=== PATIENT | male | born 1945 | race Caucasian/White ===

== ENCOUNTER 2020-08-15 12:22 | Emergency (ER) | payer OTHER ==
[~2020-08-15] VITALS: Ht 165.1 cm; Wt 68.2 kg
[2020-08-15] MEDS ORDERED: ACETAMINOPHEN 500 MG TABLET PO ONE (15:00)
[2020-08-15 15:15] LABS: BASOPHILS % (AUTO) 0.4 % (0.0-2.0); EOSINOPHILS % (AUTO) 0 % (1.0-6.0); HEMATOCRIT 39.1 % (41-53); HEMOGLOBIN 13.6 g/dL (13.5-17.5); LYMPHOCYTES # (AUTO) 0.4 K/uL (1.0-4.8); LYMPHOCYTES % (AUTO) 4.3 % (22.0-44.0); MEAN CORPUSCULAR HEMOGLOBIN 31.2 pg (26.0-34.0); MEAN CORPUSCULAR HGB CONC 34.8 G/dL (31.0-37.0); MEAN CORPUSCULAR VOLUME 90 fL (80-100); MONOCYTES % (AUTO) 12.1 % (2.0-9.0); NEUTROPHILS # (AUTO) 6.9 K/uL (1.8-7.7); NEUTROPHILS % (AUTO) 83.2 % (40.0-70.0); PLATELET COUNT (AUTO) 154 K/uL (150-450); RED BLOOD CELL COUNT(AUTO) 4.35 MIL/uL (4.50-5.90); RED CELL DISTRIBUTION WIDTH 13.4 % (11.5-14.5)
[2020-08-15 15:31] LABS: CALCIUM, TOTAL 8.7 mg/dL (8.8-10.5); CREATININE 1.87 mg/dL (0.60-1.30); POTASSIUM 3.9 mmol/L (3.5-5.1)
[2020-08-15 15:37] LABS: ALBUMIN 2.4 g/dL (3.4-5.0); BILIRUBIN,TOTAL 0.5 mg/dL (0.1-1.0)
[2020-08-15] MEDS ORDERED: CefTRIAXone 1 GM/DEXTROSE 50 ML IV ONE (16:15)
[2020-08-15] MEDS ORDERED: AZITHROMYCIN 500 MG/NS 250 ML IV ONE (16:15)
[2020-08-15 16:26] LABS: LACTIC ACID 1.5 mmol/L (0.4-2.0)
[2020-08-15 16:40] LABS: COVID AG,FIA SOURCE NASOPHARYNGEAL
[2020-08-15] MEDS ORDERED: SODIUM CHLORIDE 0.9% 250 ML IV ONE (17:15)
[2020-08-15 19:00] VITALS: BP 174/92
[2020-08-15 19:04] LABS: APPEARANCE,URINE CLOUDY (CLEAR); GLUCOSE, URINE (UA) 100 mg/dL (NEGATIVE); KETONES,URINE TRACE mg/dL (NEGATIVE); LEUKOCYTE ESTERASE ,URINE NEGATIVE (NEGATIVE); NITRATE,URINE NEGATIVE (NEGATIVE); OCCULT BLOOD,URINE LARGE (NEGATIVE); PROTEIN,URINE SEE CONFIRM (NEGATIVE)
[2020-08-15 19:16] LABS: BILIRUBIN,URINE PRELIM. POSITIVE (NEGATIVE)
[2020-08-15 19:26] LABS: SULFOSALICYLIC ACID,URINE 4+ (Negative)
[2020-08-15 19:28] LABS: BACTERIA,URINE Few /HPF (None Seen); RBC,URINE 0-2 /HPF (0-2); SQUAMOUS EPITHELIAL CELL,UR Few /LPF (None Seen); WBC,URINE 0-2 /HPF (0-5)
== END 2020-08-15 19:31 | disposition short-term general hospital (02) ==
LOC: EMS 12:24
DX: J18.9 Pneumonia, unspecified organism (principal); N28.9 Disorder of kidney and ureter, unspecified; E11.9 Type 2 diabetes mellitus without complications; I25.2 Old myocardial infarction; Z20.828 Contact with and (suspected) exposure to other viral communicable diseases
CPT/HCPCS: 36415; 70450; 71045; 71250; 80053; 81001; 82962; 83605; 83880; 84484; 85025; 87040; 87426; 93005; 96365; 96367; 99285; J0456; J0696; J7050

== ENCOUNTER 2021-08-07 09:06 | Inpatient (IN) | payer OTHER ==
[~2021-08-07] VITALS: Ht 167.6 cm; Wt 93.5 kg
[2021-08-07 09:21] LABS: EOSINOPHILS % (AUTO) 4.3 % (1.0-6.0); HEMATOCRIT 40.8 % (41-53); HEMOGLOBIN 13.8 g/dL (13.5-17.5); LYMPHOCYTES # (AUTO) 1.3 K/uL (1.0-4.8); LYMPHOCYTES % (AUTO) 19.7 % (22.0-44.0); MEAN CORPUSCULAR HEMOGLOBIN 30.6 pg (26.0-34.0); MEAN CORPUSCULAR HGB CONC 33.7 G/dL (31.0-37.0); MEAN CORPUSCULAR VOLUME 91 fL (80-100); MONOCYTES # (AUTO) 0.7 K/uL (0.1-1.0); MONOCYTES % (AUTO) 10.6 % (2.0-9.0); NEUTROPHILS # (AUTO) 4.3 K/uL (1.8-7.7); NEUTROPHILS % (AUTO) 63.4 % (40.0-70.0); PLATELET COUNT (AUTO) 182 K/uL (150-450); RED BLOOD CELL COUNT(AUTO) 4.49 MIL/uL (4.50-5.90); RED CELL DISTRIBUTION WIDTH 13.5 % (11.5-14.5)
[2021-08-07 09:31] LABS: CALCIUM, TOTAL 8.9 mg/dL (8.8-10.5); CREATININE 1.87 mg/dL (0.60-1.30); POTASSIUM 4.1 mmol/L (3.5-5.1)
[2021-08-07 09:37] LABS: PROTHROMBIN TIME 58.5 SEC (9.4-11.6)
[2021-08-07 09:39] LABS: ALBUMIN 2.7 g/dL (3.4-5.0); BILIRUBIN,TOTAL 0.3 mg/dL (0.1-1.0); TOTAL PROTEIN, SERUM 6.4 g/dL (6.4-8.2)
[2021-08-07] MEDS ORDERED: SODIUM CHLORIDE 0.9% 100 ML ONE (09:43)
[2021-08-07] MEDS ORDERED: IOHEXOL 350 MG/ML 100 ML VIAL ONE (09:43)
[2021-08-07] MEDS ORDERED: TRAZ-252 PO (09:45)
[2021-08-07] MEDS ORDERED: ATOR10TA84 PO (09:45)
[2021-08-07] MEDS ORDERED: EMPA25TA PO (09:45)
[2021-08-07] MEDS ORDERED: TERA5CAP77 PO (09:45)
[2021-08-07] MEDS ORDERED: FURO40 PO (09:45)
[2021-08-07] MEDS ORDERED: CARV25 PO (09:45)
[2021-08-07] MEDS ORDERED: LISI-894 PO (09:45)
[2021-08-07] MEDS ORDERED: WARF5TAB40 PO (09:45)
[2021-08-07] MEDS ORDERED: METF-960 PO (09:45)
[2021-08-07] MEDS ORDERED: FINA-27 PO (09:45)
[2021-08-07 09:55] LABS: INR 6.5 (0.9-1.1)
[2021-08-07] MEDS ORDERED: ASPIRIN 300 MG RECTAL SUPPOSITORY PR ONE (10:15)
[2021-08-07] MEDS ORDERED: PHYTONADIONE 10 MG/1 ML AMP SQ ONE (10:15)
[2021-08-07] MEDS ORDERED: NiCARDipine HCL 25 MG in SODIUM CHLORIDE 0.9% 240 ML IV PRN (10:15)
[2021-08-07 12:07] LABS: COVID AG,FIA SOURCE NASOPHARYNGEAL
[2021-08-07 12:39] LABS: GLUCOMETER DEV NAME(LOC) ERT.5; GLUCOSE,POINT OF CARE 156 MG/DL (70-110)
[2021-08-07] MEDS ORDERED: ONDANSETRON HCL 4 MG/2 ML VIAL IVP PRN ×2 (12:45→13:15)
[2021-08-07] MEDS ORDERED: BISACODYL 10 MG RECTAL RECTAL SUPPOSITORY PR PRN (12:45)
[2021-08-07] MEDS ORDERED: IPRATROPIUM BROMIDE 0.5 MG/2.5 ML NEB SOLUTION NEB PRN (12:45)
[2021-08-07] MEDS ORDERED: 0.9% SODIUM CHLORIDE 10 ML SYRINGE IVP PRN ×2 (12:45→13:15)
[2021-08-07] MEDS ORDERED: ALBUTEROL SULFATE 2.5 MG/0.5 ML NEB SOLUTION NEB PRN (12:45)
[2021-08-07] MEDS ORDERED: DEXTROSE 50%-WATER 25 GM/50 ML SYRINGE IVP PRN (13:00)
[2021-08-07] MEDS ORDERED: ACETAMINOPHEN 325 MG TABLET PO PRN (13:15)
[2021-08-07] MEDS: PANTOPRAZOLE SODIUM 40 MG/VIAL IVP SCH (13:56)
[2021-08-07] MEDS: NiCARDipine HCL 25 MG in SODIUM CHLORIDE 0.9% 240 ML IV PRN (18:07)
[2021-08-07] MEDS: ACETAMINOPHEN 325 MG TABLET PO PRN (21:10)
[2021-08-07] MEDS ORDERED: ACETAMINOPHEN 650 MG RECTAL SUPPOSITORY PR PRN (22:00)
[2021-08-08 00:51] LABS: GLUCOMETER DEV NAME(LOC) ERT.5; GLUCOSE,POINT OF CARE 129 MG/DL (70-110)
[2021-08-08] MEDS: NiCARDipine HCL 25 MG in SODIUM CHLORIDE 0.9% 240 ML IV PRN ×3 (01:44→12:23)
[2021-08-08 04:38] LABS: BASOPHILS % (AUTO) 1.6 % (0.0-2.0); EOSINOPHILS % (AUTO) 1.8 % (1.0-6.0); HEMATOCRIT 39.7 % (41-53); HEMOGLOBIN 13.5 g/dL (13.5-17.5); LYMPHOCYTES # (AUTO) 0.8 K/uL (1.0-4.8); LYMPHOCYTES % (AUTO) 9.7 % (22.0-44.0); MEAN CORPUSCULAR HEMOGLOBIN 30.7 pg (26.0-34.0); MEAN CORPUSCULAR VOLUME 90 fL (80-100); MONOCYTES # (AUTO) 0.6 K/uL (0.1-1.0); MONOCYTES % (AUTO) 7.7 % (2.0-9.0); NEUTROPHILS # (AUTO) 6.6 K/uL (1.8-7.7); NEUTROPHILS % (AUTO) 79.2 % (40.0-70.0); PLATELET COUNT (AUTO) 183 K/uL (150-450); RED CELL DISTRIBUTION WIDTH 13.3 % (11.5-14.5)
[2021-08-08 04:53] LABS: INR 3.7 (0.9-1.1); PROTHROMBIN TIME 35.5 SEC (9.4-11.6)
[2021-08-08 05:28] LABS: HEMOGLOBIN A1C 6.6 % (3.8-5.6)
[2021-08-08 05:32] LABS: ALBUMIN 2.5 g/dL (3.4-5.0); BILIRUBIN,TOTAL 0.5 mg/dL (0.1-1.0); CHOL/HDL RATIO 3.7 (4.2-7.3); CREATININE 1.81 mg/dL (0.60-1.30); FREE T4 (FREE THYROXINE) 1.08 ng/dL (0.76-1.46); POTASSIUM 4.1 mmol/L (3.5-5.1); THYROID STIMULATING HORMONE 0.65 uIU/mL (0.36-3.74); TOTAL PROTEIN, SERUM 6.1 g/dL (6.4-8.2)
[2021-08-08 06:41] LABS: GLUCOSE,POINT OF CARE 137 MG/DL (70-110)
[2021-08-08] MEDS: PANTOPRAZOLE SODIUM 40 MG/VIAL IVP SCH (08:28)
[2021-08-08] MEDS ORDERED: ASPIRIN 300 MG RECTAL SUPPOSITORY PR SCH (09:00)
[2021-08-08] MEDS ORDERED: AmLODIPine BESYLATE 5 MG TABLET PO SCH (22:16)
[2021-08-08] MEDS: CARVEDILOL 25 MG TABLET PO SCH (22:27)
[2021-08-08] MEDS: TERAZOSIN HCL 5 MG CAPSULE PO SCH (22:28)
[2021-08-08] MEDS: TraZODone HCL 50 MG TABLET PO SCH (22:28)
[2021-08-09] MEDS: INSULIN LISPRO 100 UNITS/ML SQ PRN ×4 (00:07→22:47)
[2021-08-09 00:12] VITALS: BP 156/76
[2021-08-09 01:50] LABS: GLUCOMETER DEV NAME(LOC) 5S.2B; GLUCOSE,POINT OF CARE 176 MG/DL (70-110)
[2021-08-09 04:30] VITALS: BP 121/66
[2021-08-09 08:13] LABS: GLUCOMETER DEV NAME(LOC) 5S.2B; GLUCOSE,POINT OF CARE 110 MG/DL (70-110)
[2021-08-09 08:45] VITALS: BP 155/81
[2021-08-09] MEDS: CARVEDILOL 25 MG TABLET PO SCH ×2 (08:46→22:48)
[2021-08-09] MEDS: FINASTERIDE 5 MG TABLET PO SCH (08:46)
[2021-08-09] MEDS: PANTOPRAZOLE SODIUM 40 MG/VIAL IVP SCH (08:46)
[2021-08-09] MEDS: FUROSEMIDE 40 MG TABLET PO SCH (08:46)
[2021-08-09] MEDS: AmLODIPine BESYLATE 10 MG TABLET PO SCH (08:47)
[2021-08-09] MEDS ORDERED: [UNRECOGNIZED DRUG - OTHER] PO SCH (09:00)
[2021-08-09 12:00] LABS: GLUCOMETER DEV NAME(LOC) 5N.3; GLUCOSE,POINT OF CARE 109 MG/DL (70-110)
[2021-08-09] MEDS: LISINOPRIL 20 MG TABLET PO SCH (12:07)
[2021-08-09 12:30] VITALS: BP 130/52
[2021-08-09] MEDS: ASPIRIN 81 MG CHEWABLE TABLET PO SCH (14:42)
[2021-08-09 16:03] VITALS: BP 155/81
[2021-08-09 17:33] LABS: GLUCOMETER DEV NAME(LOC) 5S.2B; GLUCOSE,POINT OF CARE 263 MG/DL (70-110)
[2021-08-09 17:33] LABS: GLUCOMETER DEV NAME(LOC) 5S.2B; GLUCOSE,POINT OF CARE 215 MG/DL (70-110)
[2021-08-09 17:33] LABS: GLUCOMETER DEV NAME(LOC) 5S.2B; GLUCOSE,POINT OF CARE 263 MG/DL (70-110)
[2021-08-09 19:11] VITALS: BP 155/74
[2021-08-09] MEDS: TraZODone HCL 50 MG TABLET PO SCH (21:12)
[2021-08-09] MEDS: TERAZOSIN HCL 5 MG CAPSULE PO SCH (21:12)
[2021-08-10 00:12] VITALS: BP 155/74
[2021-08-10 01:02] LABS: GLUCOMETER DEV NAME(LOC) 5S.2B; GLUCOSE,POINT OF CARE 147 MG/DL (70-110)
[2021-08-10 03:53] VITALS: BP 143/72
[2021-08-10 06:48] LABS: GLUCOMETER DEV NAME(LOC) 5S.2B; GLUCOSE,POINT OF CARE 116 MG/DL (70-110)
[2021-08-10 07:40] VITALS: BP 146/70
[2021-08-10 08:02] LABS: EOSINOPHILS % (AUTO) 3.6 % (1.0-6.0); HEMATOCRIT 35.5 % (41-53); HEMOGLOBIN 12.1 g/dL (13.5-17.5); LYMPHOCYTES # (AUTO) 1.1 K/uL (1.0-4.8); LYMPHOCYTES % (AUTO) 15.6 % (22.0-44.0); MEAN CORPUSCULAR HEMOGLOBIN 30.7 pg (26.0-34.0); MEAN CORPUSCULAR HGB CONC 34.1 G/dL (31.0-37.0); MEAN CORPUSCULAR VOLUME 90 fL (80-100); MONOCYTES # (AUTO) 0.8 K/uL (0.1-1.0); MONOCYTES % (AUTO) 10.4 % (2.0-9.0); NEUTROPHILS % (AUTO) 69.4 % (40.0-70.0); PLATELET COUNT (AUTO) 166 K/uL (150-450); RED BLOOD CELL COUNT(AUTO) 3.94 MIL/uL (4.50-5.90); RED CELL DISTRIBUTION WIDTH 13.2 % (11.5-14.5)
[2021-08-10 08:18] LABS: ALBUMIN 2.3 g/dL (3.4-5.0); BILIRUBIN,TOTAL 0.3 mg/dL (0.1-1.0); CALCIUM, TOTAL 8.1 mg/dL (8.8-10.5); CREATININE 1.94 mg/dL (0.60-1.30); POTASSIUM 3.6 mmol/L (3.5-5.1); TOTAL PROTEIN, SERUM 5.7 g/dL (6.4-8.2)
[2021-08-10] MEDS: FUROSEMIDE 40 MG TABLET PO SCH (08:40)
[2021-08-10] MEDS: PANTOPRAZOLE SODIUM 40 MG/VIAL IVP SCH (08:40)
[2021-08-10] MEDS: ASPIRIN 81 MG CHEWABLE TABLET PO SCH (08:40)
[2021-08-10] MEDS: AmLODIPine BESYLATE 10 MG TABLET PO SCH (08:41)
[2021-08-10] MEDS: LISINOPRIL 20 MG TABLET PO SCH (08:41)
[2021-08-10] MEDS: FINASTERIDE 5 MG TABLET PO SCH (08:41)
[2021-08-10] MEDS: CARVEDILOL 25 MG TABLET PO SCH ×2 (09:00→19:58)
[2021-08-10] MEDS ORDERED: ASPIRIN 81 MG CHEWABLE TABLET PO SCH (09:00)
[2021-08-10 11:45] VITALS: BP 149/71
[2021-08-10] MEDS: INSULIN LISPRO 100 UNITS/ML SQ PRN ×3 (11:58→23:52)
[2021-08-10 13:42] LABS: GLUCOMETER DEV NAME(LOC) 5N.1C; GLUCOSE,POINT OF CARE 205 MG/DL (70-110)
[2021-08-10 15:05] VITALS: BP 149/74
[2021-08-10] MEDS ORDERED: HydrALAZINE HCL 20 MG/ML VIAL IVP PRN (16:45)
[2021-08-10] MEDS ORDERED: NIFEdipine 30 MG ER TABLET PO ONE (16:45)
[2021-08-10] MEDS ORDERED: WARFARIN SODIUM 2 MG TABLET PO ONE (17:00)
[2021-08-10 17:27] LABS: INR 1.6 (0.9-1.1); PROTHROMBIN TIME 16.4 SEC (9.4-11.6)
[2021-08-10 19:20] VITALS: BP 157/79
[2021-08-10] MEDS: TERAZOSIN HCL 5 MG CAPSULE PO SCH (19:57)
[2021-08-10] MEDS: TraZODone HCL 50 MG TABLET PO SCH (19:57)
[2021-08-10] MEDS: CARVEDILOL 12.5 MG TABLET PO SCH (19:57)
[2021-08-10 20:27] LABS: GLUCOMETER DEV NAME(LOC) 5N.1C; GLUCOSE,POINT OF CARE 245 MG/DL (70-110)
[2021-08-10 20:27] LABS: GLUCOMETER DEV NAME(LOC) 5N.1C; GLUCOSE,POINT OF CARE 130 MG/DL (70-110)
[2021-08-10 23:57] LABS: GLUCOMETER DEV NAME(LOC) 5N.3; GLUCOSE,POINT OF CARE 179 MG/DL (70-110)
[2021-08-11] VITALS (7 sets, daily range): BP systolic 126–152; BP diastolic 56–76
[2021-08-11 07:21] LABS: EOSINOPHILS % (AUTO) 4.9 % (1.0-6.0); HEMATOCRIT 35.5 % (41-53); HEMOGLOBIN 12.1 g/dL (13.5-17.5); LYMPHOCYTES # (AUTO) 1.3 K/uL (1.0-4.8); LYMPHOCYTES % (AUTO) 19.5 % (22.0-44.0); MEAN CORPUSCULAR HEMOGLOBIN 30.8 pg (26.0-34.0); MEAN CORPUSCULAR VOLUME 91 fL (80-100); MONOCYTES # (AUTO) 0.7 K/uL (0.1-1.0); MONOCYTES % (AUTO) 10.3 % (2.0-9.0); NEUTROPHILS # (AUTO) 4.2 K/uL (1.8-7.7); NEUTROPHILS % (AUTO) 64.3 % (40.0-70.0); PLATELET COUNT (AUTO) 176 K/uL (150-450); RED BLOOD CELL COUNT(AUTO) 3.92 MIL/uL (4.50-5.90); RED CELL DISTRIBUTION WIDTH 13.4 % (11.5-14.5)
[2021-08-11 07:47] LABS: INR 1.5 (0.9-1.1)
[2021-08-11 07:50] LABS: ALBUMIN 2.3 g/dL (3.4-5.0); BILIRUBIN,TOTAL 0.3 mg/dL (0.1-1.0); CREATININE 1.96 mg/dL (0.60-1.30); POTASSIUM 3.7 mmol/L (3.5-5.1); TOTAL PROTEIN, SERUM 5.7 g/dL (6.4-8.2)
[2021-08-11] MEDS: ASPIRIN 81 MG CHEWABLE TABLET PO SCH (07:58)
[2021-08-11] MEDS: PANTOPRAZOLE SODIUM 40 MG/VIAL IVP SCH (07:58)
[2021-08-11] MEDS: LISINOPRIL 20 MG TABLET PO SCH (07:58)
[2021-08-11] MEDS: FINASTERIDE 5 MG TABLET PO SCH (07:58)
[2021-08-11] MEDS: NIFEdipine 30 MG ER TABLET PO SCH (07:58)
[2021-08-11] MEDS: CARVEDILOL 12.5 MG TABLET PO SCH ×2 (09:00→20:22)
[2021-08-11 11:11] LABS: GLUCOMETER DEV NAME(LOC) 5N.1C; GLUCOSE,POINT OF CARE 121 MG/DL (70-110)
[2021-08-11] MEDS: INSULIN LISPRO 100 UNITS/ML SQ PRN ×3 (11:47→20:20)
[2021-08-11 17:50] LABS: GLUCOMETER DEV NAME(LOC) 5N.1C; GLUCOSE,POINT OF CARE 291 MG/DL (70-110)
[2021-08-11 17:50] LABS: GLUCOMETER DEV NAME(LOC) 5N.1C; GLUCOSE,POINT OF CARE 142 MG/DL (70-110)
[2021-08-11] MEDS: TraZODone HCL 50 MG TABLET PO SCH (20:21)
[2021-08-11] MEDS: TERAZOSIN HCL 5 MG CAPSULE PO SCH (20:22)
[2021-08-12 05:03] VITALS: BP 154/69
[2021-08-12] MEDS: ACETAMINOPHEN 325 MG TABLET PO PRN (05:43)
[2021-08-12] MEDS ORDERED: HYDROCODONE/ACETAMINOPHEN 5-325 MG TABLET PO ONE (06:45)
[2021-08-12 07:14] VITALS: BP 131/68
[2021-08-12 07:54] LABS: GLUCOMETER DEV NAME(LOC) 5S.2B; GLUCOSE,POINT OF CARE 133 MG/DL (70-110)
[2021-08-12] MEDS: NIFEdipine 30 MG ER TABLET PO SCH (08:04)
[2021-08-12] MEDS: LISINOPRIL 20 MG TABLET PO SCH (08:04)
[2021-08-12] MEDS: ASPIRIN 81 MG CHEWABLE TABLET PO SCH (08:04)
[2021-08-12] MEDS: FINASTERIDE 5 MG TABLET PO SCH (08:04)
[2021-08-12] MEDS: CARVEDILOL 12.5 MG TABLET PO SCH (08:05)
[2021-08-12] MEDS: PANTOPRAZOLE SODIUM 40 MG/VIAL IVP SCH (08:05)
[2021-08-12 10:35] LABS: EOSINOPHILS % (AUTO) 4.1 % (1.0-6.0); HEMATOCRIT 36.8 % (41-53); HEMOGLOBIN 12.5 g/dL (13.5-17.5); LYMPHOCYTES # (AUTO) 1.1 K/uL (1.0-4.8); LYMPHOCYTES % (AUTO) 17.1 % (22.0-44.0); MEAN CORPUSCULAR HEMOGLOBIN 30.7 pg (26.0-34.0); MEAN CORPUSCULAR HGB CONC 33.9 G/dL (31.0-37.0); MEAN CORPUSCULAR VOLUME 91 fL (80-100); MONOCYTES # (AUTO) 0.6 K/uL (0.1-1.0); MONOCYTES % (AUTO) 8.9 % (2.0-9.0); NEUTROPHILS # (AUTO) 4.4 K/uL (1.8-7.7); NEUTROPHILS % (AUTO) 68.9 % (40.0-70.0); PLATELET COUNT (AUTO) 160 K/uL (150-450); RED BLOOD CELL COUNT(AUTO) 4.06 MIL/uL (4.50-5.90); RED CELL DISTRIBUTION WIDTH 13.2 % (11.5-14.5)
[2021-08-12 11:00] VITALS: BP 137/67
[2021-08-12 11:10] LABS: ALBUMIN 2.4 g/dL (3.4-5.0); BILIRUBIN,TOTAL 0.4 mg/dL (0.1-1.0); CALCIUM, TOTAL 8.2 mg/dL (8.8-10.5); CREATININE 2.16 mg/dL (0.60-1.30)
[2021-08-12] MEDS: INSULIN LISPRO 100 UNITS/ML SQ PRN (11:49)
[2021-08-12 11:58] LABS: GLUCOMETER DEV NAME(LOC) 5N.3; GLUCOSE,POINT OF CARE 189 MG/DL (70-110)
[2021-08-12 11:58] LABS: GLUCOMETER DEV NAME(LOC) 5N.3; GLUCOSE,POINT OF CARE 253 MG/DL (70-110)
[2021-08-12] MEDS ORDERED: ASPI-1450 PO (13:44)
[2021-08-12] MEDS ORDERED: INSU100V SQ (13:54)
== END 2021-08-12 15:35 | disposition home or self-care (01) | DRG 304 ==
LOC: EMS 09:06 → ICUN 08-08 11:02 → 5S 08-08 20:28
PROVIDERS: ADMIT Internal Medicine; ATTEND Internal Medicine
DX: I16.1 Hypertensive emergency (principal); E43 Unspecified severe protein-calorie malnutrition; N17.9 Acute kidney failure, unspecified; E78.1 Pure hyperglyceridemia; E11.9 Type 2 diabetes mellitus without complications; E04.2 Nontoxic multinodular goiter; H53.2 Diplopia; I48.91 Unspecified atrial fibrillation; I25.10 Atherosclerotic heart disease of native coronary artery without angina pectoris; R79.1 Abnormal coagulation profile; R29.810 Facial weakness; N40.0 Benign prostatic hyperplasia without lower urinary tract symptoms; I65.22 Occlusion and stenosis of left carotid artery; I10 Essential (primary) hypertension; Z20.822 Contact with and (suspected) exposure to COVID-19; G83.9 Paralytic syndrome, unspecified; E78.5 Hyperlipidemia, unspecified; Z95.1 Presence of aortocoronary bypass graft; Z79.01 Long term (current) use of anticoagulants; I25.2 Old myocardial infarction; Z95.0 Presence of cardiac pacemaker
CPT/HCPCS: 70450; 70496; 71045; 76770; 80053; 80061; 82962; 83036; 84439; 84443; 84484; 85025; 85610; 85730; 86850; 86900; 86901; 92610; 93005; 93306; 93880; 97110; 97112; 97116; 97163; 97166; 97535; 99291; C9113; J3430; J3490; J7050; Q9967; 36415-L1; 36415-TC